=== PATIENT | female | born 1935 | race Caucasian/White ===

== ENCOUNTER 2019-11-09 07:03 | Emergency (ER) | payer MEDICARE ==
[2019-11-09] MEDS ORDERED: Ondansetron PF 4 MG/2 ML Vial ONE (07:25)
[2019-11-09 07:32] LABS: #Lymphocytes 1.3 thou/uL (1.20-3.40); #Monocytes 0.5 thou/uL (0.11-0.59); #Neutrophils 16.6 thou/uL (1.40-6.50); %Basophils 0.1 % (0.0-1.0); %Eosinophils 0.1 % (0.0-10.0); %Lymphocytes 7.1 % (21.0-51.0); %Monocytes 2.8 % (0.0-10.0); %Neutrophils 89.9 % (42.0-75.0); Hemoglobin 14.9 g/dL (12.0-16.0); Mean Corpuscular HGB CONC 32.7 g/dL (32.0-36.0); Mean Corpuscular Hemoglobin 31.7 pg (27.0-31.0); Mean Platelet Volume 8.4 fL (7.4-10.4); Platelet Count 304 thou/uL (130-400); RBC Distribution Width 11.5 % (11.5-14.5); Red Blood Cell (RBC) Count 4.69 mill/uL (4.20-5.40); White Blood Cell (WBC) Count 18.5 thou/uL (4.8-10.8)
[2019-11-09 07:47] LABS: ALT (SGPT) 15 U/L (8-55); AST (SGOT) 19 U/L (5-34); Albumin 4.4 g/dL (3.4-4.8); Alkaline Phosphatase 78 U/L (40-110); Anion Gap 14 mmol/L (10-20); BUN (Urea Nitrogen) 20 mg/dL (9.8-20.1); Bilirubin, Total 0.6 mg/dL (0.2-1.2); CK (CPK) 81 U/L (29-168); Calc. Creatinine Clearance 0 mL/min (70-130); Calcium 9.2 mg/dL (7.8-10.44); Carbon Dioxide 23 mmol/L (23-31); Chloride 105 mmol/L (98-107); Estimated GFR-MDRD 75; Globulin 3.1 g/dL (2.4-3.5); Glucose 143 mg/dL (83-110); Lipase 147 U/L (8-78); Potassium 4.2 mmol/L (3.5-5.1); Protein, Total 7.5 g/dL (6.0-8.3); Sodium 138 mmol/L (136-145)
--- NOTE | 2019-11-09 08:43 | CT ---
CT Abdomen Pelvis W Con: 11/09/2019 7:16 AM CLINICAL INFORMATION: Nausea vomiting and diarrhea COMPARISON: None. TECHNIQUE: Multiple contiguous axial images were obtained and a CT of the abdomen and pelvis with IV contrast. C oronal and sagittal reformats were performed. FINDINGS: Lower Chest: within normal limits. Abdomen: Liver: Hypodensities are seen in the left lower liver measuring up to 1.4 cm in size which likely rep resent cysts. Bile Ducts: Normal caliber. Gallbladder: No calcified gallstones. Normal caliber wall. Pancreas: within normal limits. Spleen: within normal limits. Adrenals: within normal limits. Kidneys: Nonobstructing left 2 mm calcification Pelvis: Reproductive Organs: No pelvic masses. Ureters: within normal limits. Bladder: within normal limits. Peritoneum: No ascites or free air, no fluid collection. Bowel: Normal caliber. Mesentery and Retroperitoneum: No enlarged mesenteric or retroperitoneal lymph nodes. Vessels: Atherosclerotic calcifications. Abdominal Wall: within normal limits. Bones: Degenerative changes in the spine. IMPRESSION: 1. No evidence of acute intraabdominal or pelvic abnormality. 2. Hepatic cysts 3. Nonobstructing left renal calcification
[2019-11-09 09:28] LABS: Bilirubin Negative (Negative); Blood, Urine Negative (Negative); Clarity Clear (Clear); Glucose, Urine (Dipstick) Normal (Negative); Leukocyte Negative Leu/uL (Negative); Nitrite Negative (Negative); Protein, Urine (Dipstick) Negative (Neg-Trace); Urobilinogen Normal mg/dL (Less than 2)
[2019-11-09] MEDS ORDERED: Iopamidol-370 76% 500 ML 1 ML ONE (13:32)
== END 2019-11-09 09:50 | disposition home or self-care (01) ==
LOC: ERS 07:03
DX: E86.0 Dehydration (principal); D72.829 Elevated white blood cell count, unspecified; R11.2 Nausea with vomiting, unspecified; R19.7 Diarrhea, unspecified
CPT/HCPCS: 74177; 80053; 81003; 82550; 83690; 85025; 93005; 96361; 96374; J2405; Q9967

== ENCOUNTER 2022-10-24 10:07 | Inpatient (IN) | payer MEDICARE ==
[2022-10-23 10:42] VITALS: BMI 29.9
[2022-10-24] MEDS ORDERED: Propofol 500 MG/50 ML VIAL ONE (10:26)
[2022-10-24] MEDS ORDERED: Fentanyl 100 MCG/2 ML VIAL ONE ×2 (10:39→10:59)
[2022-10-24] MEDS ORDERED: Midazolam HCl 2 mg/2 ml Vial ONE (10:39)
[2022-10-24] MEDS ORDERED: Ropivacaine 0.5% HCl/PF (150 MG/30 ML VIAL) ONE (10:39)
[2022-10-24] MEDS ORDERED: Sodium Chloride 0.9% 100 ML ONE ×2 (10:48→11:03)
[2022-10-24] MEDS ORDERED: CEFAZOLIN 2 GM VIAL ONE (10:48)
[2022-10-24] MEDS ORDERED: Tranexamic Acid 1,000 MG/10 ML VIAL ONE (11:03)
[2022-10-24] MEDS ORDERED: Vancomycin (BATCH) 1.5 GRAM/300 ML BAG ONE (11:03)
[2022-10-24] MEDS ORDERED: Ondansetron PF 4 MG/2 ML Vial ONE (11:16)
[2022-10-24] MEDS ORDERED: PHENYLEPHRINE-NS 100 MCG/ML 10 ML SYRINGE ONE (11:16)
[2022-10-24] MEDS ORDERED: diphenhydrAMINE 25 MG CAP PO PRN (11:44)
[2022-10-24] MEDS ORDERED: Fentanyl 100 MCG/2 ML VIAL SLOW IVP PRN (11:44)
[2022-10-24] MEDS ORDERED: Promethazine HCl 25 MG/ML VIAL IM PRN ×2 (11:44→12:16)
[2022-10-24] MEDS ORDERED: Zolpidem Tartrate 5 MG TAB PO PRN (11:44)
[2022-10-24] MEDS ORDERED: Acetaminophen 325 MG TAB PO PRN (11:44)
[2022-10-24 12:07] LABS: SARS-CoV-2 NAA Rapid Test Not Detected (NotDetected)
[2022-10-24] MEDS ORDERED: Ondansetron HCl/PF 4 MG/2 ML Vial IVP PRN (12:16)
[2022-10-24] MEDS ORDERED: PACU-Morphine 4MG/ML VIAL SLOW IVP PRN (12:16)
[2022-10-24] MEDS: traMADol HCl 50 MG TAB PO PRN (15:46)
[2022-10-24] MEDS: Sodium Chloride 0.9% 1,000 ML IV SCH ×2 (15:53→22:43)
[2022-10-24] MEDS: Ondansetron PF 4 MG/2 ML Vial IVP PRN (16:30)
[2022-10-24] MEDS ORDERED: HYDROcodone/Acetaminophen 10/325 mg Tablet PO PRN (16:48)
[2022-10-24] MEDS: HYDROcodone/Acetaminophen 10/325 mg Tablet PO PRN ×2 (17:38→22:14)
[2022-10-24] MEDS: CEFAZOLIN 2 GM in Sodium Chloride 0.9% 100 ML IVPB SCH (17:39)
[2022-10-24] MEDS: Aspirin 81 mg Enteric Coated Tablet PO SCH (20:39)
[2022-10-24] MEDS: Ferrous Gluconate 324 MG TAB PO SCH (20:39)
[2022-10-24] MEDS: Senokot S 8.6-50 MG TAB PO SCH (20:40)
[2022-10-25] MEDS: HYDROcodone/Acetaminophen 10/325 mg Tablet PO PRN ×5 (02:05→20:45)
[2022-10-25] MEDS: CEFAZOLIN 2 GM in Sodium Chloride 0.9% 100 ML IVPB SCH (02:05)
[2022-10-25 07:43] LABS: Hemoglobin 11.6 g/dL (12.0-16.0); Mean Corpuscular HGB CONC 32.8 g/dL (32.0-36.0); Mean Corpuscular Hemoglobin 32.5 pg (27.0-31.0); Mean Corpuscular Volume 99.1 fl (78.0-98.0); Mean Platelet Volume 7.5 fL (7.4-10.4); Platelet Count 372 10x3/uL (130-400); RBC Distribution Width 11.7 % (11.5-14.5); Red Blood Cell (RBC) Count 3.58 mill/uL (4.20-5.40); White Blood Cell (WBC) Count 9.1 10x3/uL (4.8-10.8)
[2022-10-25] MEDS: Senokot S 8.6-50 MG TAB PO SCH ×2 (07:44→20:45)
[2022-10-25] MEDS: Multivitamin W/ Minerals 1 TAB PO SCH (07:45)
[2022-10-25] MEDS: Ferrous Gluconate 324 MG TAB PO SCH ×2 (07:45→20:44)
[2022-10-25] MEDS: Cholecalciferol 1,000 UNITS (25 MCG) TAB PO SCH (07:46)
[2022-10-25] MEDS: Meloxicam 7.5 MG TAB PO SCH (07:46)
[2022-10-25] MEDS: Aspirin 81 mg Enteric Coated Tablet PO SCH ×2 (07:47→20:44)
[2022-10-25] MEDS: Sodium Chloride 0.9% 1,000 ML IV SCH ×2 (07:53→16:07)
[2022-10-25] MEDS ORDERED: FLUOXETINE HCL 10 MG PO SCH (09:00)
[2022-10-25] MEDS ORDERED: Cholecalciferol 1,000 UNITS (25 MCG) TAB PO SCH (09:00)
[2022-10-25] MEDS: FLUoxetine HCl 10 MG CAP PO SCH (09:27)
[2022-10-25] MEDS: traMADol HCl 50 MG TAB PO PRN (13:59)
[2022-10-26] MEDS: HYDROcodone/Acetaminophen 10/325 mg Tablet PO PRN ×4 (00:45→23:17)
[2022-10-26] MEDS: Sodium Chloride 0.9% 1,000 ML IV SCH ×3 (02:55→23:55)
[2022-10-26 06:43] LABS: Hemoglobin 11.2 g/dL (12.0-16.0); Mean Corpuscular Hemoglobin 33.5 pg (27.0-31.0); Mean Corpuscular Volume 98.6 fl (78.0-98.0); Mean Platelet Volume 7.6 fL (7.4-10.4); Platelet Count 341 10x3/uL (130-400); RBC Distribution Width 11.6 % (11.5-14.5); Red Blood Cell (RBC) Count 3.33 mill/uL (4.20-5.40); White Blood Cell (WBC) Count 10.2 10x3/uL (4.8-10.8)
[2022-10-26] MEDS: Polyethylene Glycol 3350 17 GM Packet PO SCH (08:14)
[2022-10-26] MEDS: Cholecalciferol 1,000 UNITS (25 MCG) TAB PO SCH (08:15)
[2022-10-26] MEDS: Aspirin 81 mg Enteric Coated Tablet PO SCH ×2 (08:15→19:51)
[2022-10-26] MEDS: FLUoxetine HCl 10 MG CAP PO SCH (08:15)
[2022-10-26] MEDS: Ferrous Gluconate 324 MG TAB PO SCH ×2 (08:15→19:50)
[2022-10-26] MEDS: Senokot S 8.6-50 MG TAB PO SCH ×2 (08:15→19:50)
[2022-10-26] MEDS: Multivitamin W/ Minerals 1 TAB PO SCH (08:15)
[2022-10-26] MEDS: Meloxicam 7.5 MG TAB PO SCH (08:16)
[2022-10-26] MEDS: traMADol HCl 50 MG TAB PO PRN ×2 (11:09→19:51)
[2022-10-26] MEDS: Ondansetron PF 4 MG/2 ML Vial IVP PRN (23:17)
[2022-10-27] MEDS: FLUoxetine HCl 10 MG CAP PO SCH (08:54)
[2022-10-27] MEDS: Aspirin 81 mg Enteric Coated Tablet PO SCH (08:55)
[2022-10-27] MEDS: Cholecalciferol 1,000 UNITS (25 MCG) TAB PO SCH (08:56)
[2022-10-27] MEDS: Meloxicam 7.5 MG TAB PO SCH (08:56)
[2022-10-27] MEDS: Senokot S 8.6-50 MG TAB PO SCH (08:57)
[2022-10-27] MEDS: Ferrous Gluconate 324 MG TAB PO SCH (08:57)
[2022-10-27] MEDS: Multivitamin W/ Minerals 1 TAB PO SCH (08:58)
[2022-10-27] MEDS: HYDROcodone/Acetaminophen 10/325 mg Tablet PO PRN (08:59)
[2022-10-27] MEDS: Polyethylene Glycol 3350 17 GM Packet PO SCH (08:59)
[2022-10-27] MEDS: Sodium Chloride 0.9% 1,000 ML IV SCH (10:27)
[2022-10-27 12:46] VITALS: BP 131/76; TEMP 97.8
== END 2022-10-27 14:25 | disposition home or self-care (01) | DRG 470 ==
LOC: SDC 10:07 → SURG A 12:00 → SDC 16:30 → SURG A 16:46 → OBSVTOIN 10-26 09:50
PROVIDERS: ADMIT Orthopaedic Surgery; ATTEND Orthopaedic Surgery
PROC: 0SR90J9 Replacement of Right Hip Joint with Synthetic Substitute, Cemented, Open Approach (ICD-10-PCS; principal; 2022-10-24)
DX: M16.11 Unilateral primary osteoarthritis, right hip (principal); D62 Acute posthemorrhagic anemia; Z20.822 Contact with and (suspected) exposure to COVID-19; R33.9 Retention of urine, unspecified; Z79.899 Other long term (current) drug therapy
CPT/HCPCS: 36415; 85027; 88305; 88311; 96365; 96376; C1713; C1776; G0378; J2250; J2405; J2704; J2795; J3010; J3370; J3490; U0002